=== PATIENT | male | born 1965 | race Caucasian/White ===

== ENCOUNTER 2021-01-07 11:38 | Day surgery (SDC) | payer MEDICARE ==
[2021-01-07] MEDS ORDERED: BUPIVACAINE 0.5% VIAL IJ ONE (11:39)
[2021-01-07] MEDS ORDERED: Xylocaine 1% Vial 30 ML PF IJ ONE (11:39)
[2021-01-07] MEDS ORDERED: Depo-Medrol 40 MG/ML IM ONE (11:39)
--- NOTE | 2021-01-07 14:02 | XRAY ---
Indication: Left shoulder injection. Intraoperative fluoroscopy provided for 17 seconds. 2 digital spot images submitted for interpretation demonstrates needle tip projecting over the left glenohumeral joint superiorly. Small amount of contrast injected for needle tip placement. Correlate with intraoperative findings/report.
--- NOTE | 2021-01-07 14:08 | XRAY ---
17 seconds of fluoroscopy was used in surgery for a left intra-articular shoulder injection.
== END 2021-01-07 13:57 | disposition home or self-care (01) ==
LOC: SDC-PAIN 11:38
PROVIDERS: ATTEND Psychiatry & Neurology Pain Medicine
DX: M19.012 Primary osteoarthritis, left shoulder (principal); E78.5 Hyperlipidemia, unspecified; F41.9 Anxiety disorder, unspecified
CPT/HCPCS: 20550; 20610; 73030; 77002; 80307; 81002; 82570; 83986; J1030; J2001; Q9966

== ENCOUNTER 2021-02-04 14:38 | Day surgery (SDC) | payer MEDICARE ==
[2021-02-04] MEDS ORDERED: BUPIVACAINE 0.5% VIAL IJ ONE (14:39)
[2021-02-04] MEDS ORDERED: Xylocaine 1% Vial 30 ML PF IJ ONE (14:39)
[2021-02-04] MEDS ORDERED: Depo-Medrol 80 MG/ML IM ONE (14:39)
[2021-02-04] MEDS ORDERED: Lactated Ringers 1,000 ML IV ONE (16:23)
--- NOTE | 2021-02-04 16:51 | XRAY ---
Indication: Left shoulder injection. Intraoperative fluoroscopy provided for 12 seconds. 3 digital spot images submitted for interpretation demonstrates needle tip projecting over the left glenohumeral joint superiorly. Small amount of contrast injected for needle tip placement. Correlate with intraoperative findings/report.
--- NOTE | 2021-02-04 17:00 | XRAY ---
12 seconds fluoroscopy time in surgery for intra-articular injection of the left shoulder.
== END 2021-02-04 16:27 | disposition home or self-care (01) ==
LOC: SDC-PAIN 14:38
PROVIDERS: ATTEND Psychiatry & Neurology Pain Medicine
DX: M19.012 Primary osteoarthritis, left shoulder (principal); E78.5 Hyperlipidemia, unspecified; F41.9 Anxiety disorder, unspecified; Z79.899 Other long term (current) drug therapy
CPT/HCPCS: 20610; 73030; 77002; J1040; J2001; Q9966

== ENCOUNTER 2021-07-01 16:37 | Day surgery (SDC) | payer MEDICARE ==
[2021-07-01] MEDS ORDERED: Xylocaine 1% Vial 30 ML PF IJ ONE (16:38)
[2021-07-01] MEDS ORDERED: BUPIVACAINE 0.5% VIAL IJ ONE (16:38)
[2021-07-01] MEDS ORDERED: Depo-Medrol 40 MG/ML IM ONE (16:38)
--- NOTE | 2021-07-01 21:16 | XRAY ---
Indication: Left shoulder injection. Intraoperative fluoroscopy provided for 15 seconds. Single digital spot image submitted for interpretation demonstrates needle tip projecting over the left glenohumeral joint superiorly. Small amount of contrast injected for needle tip placement. Correlate with intraoperative findings/report.
--- NOTE | 2021-07-02 08:39 | XRAY ---
15 seconds fluoroscopy time in surgery for intra-articular injection of the left shoulder.
== END 2021-07-01 18:45 | disposition home or self-care (01) ==
LOC: SDC-PAIN 16:37
PROVIDERS: ATTEND Psychiatry & Neurology Pain Medicine
DX: M19.012 Primary osteoarthritis, left shoulder (principal); M75.22 Bicipital tendinitis, left shoulder; Z79.899 Other long term (current) drug therapy
CPT/HCPCS: 20550; 20610; 73030; 77002; J1030; J2001; Q9966

== ENCOUNTER 2021-08-12 16:20 | Day surgery (SDC) | payer MEDICARE ==
[2021-08-12] MEDS ORDERED: Xylocaine 1% Vial 30 ML PF IJ ONE (16:21)
[2021-08-12] MEDS ORDERED: BUPIVACAINE 0.5% VIAL IJ ONE (16:21)
[2021-08-12] MEDS ORDERED: Depo-Medrol 40 MG/ML IM ONE (16:21)
--- NOTE | 2021-08-13 11:21 | XRAY ---
13 seconds fluoroscopy time in surgery for intra-articular injection of the left knee.
--- NOTE | 2021-08-13 11:31 | XRAY ---
9 seconds fluoroscopy time in surgery for intra-articular injection of the right knee.
--- NOTE | 2021-08-13 12:15 | XRAY ---
Indication: Intra-articular left knee injection. Intra-operative fluoroscopy was provided for 13 seconds. A single digital spot image was submitted for interpretation demonstrates a needle tip projected over the left femur intercondylar notch. A small amount of contrast has been injected for needle tip placement. Correlate with intraoperative findings/report.
--- NOTE | 2021-08-13 12:18 | XRAY ---
Indication: Intra-articular right knee injection. Intra-operative fluoroscopy was provided for 9 seconds. A single digital spot image was submitted for interpretation demonstrates a needle tip projected over the right femur intercondylar notch. A small amount of contrast has been injected for needle tip placement. Correlate with intraoperative findings/report.
== END 2021-08-12 18:00 | disposition home or self-care (01) ==
LOC: SDC-PAIN 16:20
PROVIDERS: ATTEND Psychiatry & Neurology Pain Medicine
DX: M17.0 Bilateral primary osteoarthritis of knee (principal); Z79.899 Other long term (current) drug therapy
CPT/HCPCS: 20610; 73560; 77002; J1030; J2001; Q9966

== ENCOUNTER 2023-11-02 15:18 | Day surgery (SDC) | payer MEDICARE ==
[2023-11-02] MEDS ORDERED: Depo-Medrol 40 MG/ML IM ONE (15:19)
[2023-11-02] MEDS ORDERED: BUPIVACAINE 0.5% VIAL IJ ONE (15:19)
[2023-11-02] MEDS ORDERED: XYLOCAINE-MPF 1% 5ML SDV IJ ONE (15:19)
--- NOTE | 2023-11-02 19:26 | XRAY ---
Indication: Left shoulder and subacromial bursa injection. Intraoperative fluoroscopy provided for 17 seconds. 2 digital spot image submitted for interpretation demonstrates needle tip projecting over left glenohumeral joint superiorly. Second needle tip subacromial. Small amount of contrast injected for both needle tip placement. Correlate with intraoperative findings/report.
--- NOTE | 2023-11-03 08:59 | XRAY ---
17 seconds of fluoroscopy was used in surgery for a left intra-articular shoulder and subacromial bursa injection.
== END 2023-11-02 18:10 | disposition home or self-care (01) ==
LOC: SDC-PAIN 15:18
PROVIDERS: ATTEND Psychiatry & Neurology Pain Medicine
DX: M19.012 Primary osteoarthritis, left shoulder (principal); M75.52 Bursitis of left shoulder; E11.9 Type 2 diabetes mellitus without complications; Z79.899 Other long term (current) drug therapy
CPT/HCPCS: 20610; 73030; 77002; 82947; J1030; Q9966

== ENCOUNTER 2024-04-04 14:31 | Day surgery (SDC) | payer MEDICARE ==
[2024-04-04] MEDS ORDERED: BUPIVACAINE 0.5% VIAL IJ ONE (14:32)
[2024-04-04] MEDS ORDERED: XYLOCAINE-MPF 1% 5ML SDV IJ ONE (14:32)
[2024-04-04] MEDS ORDERED: Depo-Medrol 40 MG/ML IM ONE (14:32)
--- NOTE | 2024-04-04 19:28 | XRAY ---
Indication: Left shoulder and subacromial bursa injection. Intraoperative fluoroscopy provided for 19 seconds. 3 digital spot images submitted for interpretation demonstrates needle tip projecting over the left glenohumeral joint superiorly. Second needle tip subacromial. Small amount of contrast injected for both needle tip placement. Correlate with intraoperative findings/report.
--- NOTE | 2024-04-05 10:34 | XRAY ---
19 seconds of fluoroscopy was used in surgery for a left intra-articular shoulder and subacromial bursa injection.
== END 2024-04-04 16:49 | disposition home or self-care (01) ==
LOC: SDC-PAIN 14:31
PROVIDERS: ATTEND Psychiatry & Neurology Pain Medicine
DX: M19.012 Primary osteoarthritis, left shoulder (principal); E11.9 Type 2 diabetes mellitus without complications
CPT/HCPCS: 20610; 73030; 77002; 82947; J1010; Q9966

== ENCOUNTER 2024-05-30 14:50 | Day surgery (SDC) | payer MEDICARE ==
--- NOTE | 2024-05-30 20:26 | XRAY ---
Indication: Left knee injection. Intraoperative fluoroscopy provided for 8 seconds. Single digital spot image submitted for interpretation demonstrates needle tip projecting over left femur intercondylar notch. Small amount of contrast injected for needle tip placement. Correlate with intraoperative findings/report.
--- NOTE | 2024-05-31 09:12 | XRAY ---
8 seconds of fluoroscopy was used in surgery for a left intra-articular knee injection.
== END 2024-05-30 17:55 | disposition home or self-care (01) ==
LOC: SDC-PAIN 14:50
PROVIDERS: ATTEND Psychiatry & Neurology Pain Medicine
DX: M17.12 Unilateral primary osteoarthritis, left knee (principal); E11.9 Type 2 diabetes mellitus without complications
CPT/HCPCS: 20550; 20610; 73560; 77002; 82947; Q9966

== ENCOUNTER 2024-09-12 15:42 | Day surgery (SDC) | payer MEDICARE ==
[2024-09-12] MEDS ORDERED: LIDOCAINE HCL 1% AMPUL 5 ML IJ ONE (15:43)
[2024-09-12] MEDS ORDERED: Depo-Medrol 40 MG/ML IM ONE (15:43)
[2024-09-12] MEDS ORDERED: BUPIVACAINE 0.5% VIAL IJ ONE (15:43)
--- NOTE | 2024-09-12 20:51 | XRAY ---
Indication: Left shoulder injection. Intraoperative fluoroscopy provided for 7 seconds. Single digital spot images submitted for interpretation demonstrates needle tip projecting over left glenohumeral joint superiorly. Small amount of contrast injected for needle tip placement. Correlate with intraoperative findings/report.
--- NOTE | 2024-09-13 09:54 | XRAY ---
7 seconds of fluoroscopy were used in surgery for a left intra-articular shoulder injection.
== END 2024-09-12 17:45 | disposition home or self-care (01) ==
LOC: SDC-PAIN 15:42
PROVIDERS: ATTEND Psychiatry & Neurology Pain Medicine
DX: M19.012 Primary osteoarthritis, left shoulder (principal); E11.9 Type 2 diabetes mellitus without complications
CPT/HCPCS: 20550; 20610; 73030; 77002; 82947; Q9966

== ENCOUNTER 2025-02-27 14:51 | Day surgery (SDC) | payer MEDICARE ==
[2025-02-27] MEDS ORDERED: LIDOCAINE HCL 1% AMPUL 5 ML IJ ONE (14:52)
[2025-02-27] MEDS ORDERED: Depo-Medrol 40 MG/ML IM ONE (14:52)
[2025-02-27] MEDS ORDERED: BUPIVACAINE 0.5% VIAL IJ ONE (14:52)
--- NOTE | 2025-02-27 20:30 | XRAY ---
Indication: Left knee injection. Intraoperative fluoroscopy provided for 7 seconds. Single digital spot image submitted for interpretation demonstrates needle tip projecting over left femur intercondylar notch. Small amount of contrast injected for needle tip placement. Correlate with intraoperative findings/report.
--- NOTE | 2025-02-27 20:32 | XRAY ---
7 seconds of fluoroscopy were used in surgery for a left intra-articular knee injection.
== END 2025-02-27 17:53 | disposition home or self-care (01) ==
LOC: SDC-PAIN 14:51
PROVIDERS: ATTEND Psychiatry & Neurology Pain Medicine
DX: M17.12 Unilateral primary osteoarthritis, left knee (principal); M75.22 Bicipital tendinitis, left shoulder; E11.9 Type 2 diabetes mellitus without complications
CPT/HCPCS: 20550; 20610; 73560; 77002; 82947; Q9966